=== PATIENT | female | born 1985 | race Caucasian/White ===

== ENCOUNTER → 2024-12-26 14:58 | Outpatient (REF) | payer BC, SELFPAY | LOC: HWWDC 14:58 | PROVIDERS: ATTENDING PHYSICIAN Physician Assistant Medical | DX: Z12.31 Encounter for screening mammogram for malignant neoplasm of breast (principal) | CPT/HCPCS: 77063; 77067 ==

== ENCOUNTER → 2025-01-29 09:21 | Outpatient (REF) | payer BC, SELFPAY | LOC: WDC 09:21 | PROVIDERS: ATTENDING PHYSICIAN Physician Assistant Medical | DX: R92.8 Other abnormal and inconclusive findings on diagnostic imaging of breast (principal) | CPT/HCPCS: 76642 ==

== ENCOUNTER → 2025-03-15 08:45 | Outpatient (REF) | payer BC, SELFPAY | LOC: RAD 08:45 | PROVIDERS: ATTENDING PHYSICIAN Physician Assistant Medical; FAMILY PHYSICIAN Family Medicine | DX: I10 Essential (primary) hypertension (principal) | CPT/HCPCS: 93975 ==